=== PATIENT | male | born 1965 | race Caucasian/White ===

== ENCOUNTER 2021-11-15 10:08 | Emergency (ER) | payer OTHER ==
[2021-11-15 10:33] LABS: BASOPHIL 0.5 % (0-2); EOSINOPHIL 0.3 % (0-5); MCH 31.8 pg (25.0-31.0); MCHC 34.1 g/dL (32.0-36.0); MCV 93.4 fL (78.0-100.0); MONOCYTE 8.4 % (0-12); MPV 10.6 fL (6.0-9.5); NEUTROPHIL 87.3 % (41-80); NRBC 0; PLT 177 K/uL (150-400); RBC 4.71 M/uL (4.70-6.00); RDW 12.7 % (11.5-14.0); WBC 10.3 K/uL (4.0-10.5)
[2021-11-15 10:44] LABS: ALBUMIN 4.2 g/dL (3.4-5.0); BILIRUBIN - TOTAL 0.4 mg/dL (0.2-1.0); BUN/CREAT RATIO (CALC) 16.5 RATIO; CREATININE 0.91 mg/dL (0.67-1.17); POTASSIUM 3.9 mmol/L (3.5-5.1); TOTAL PROTEIN 7.2 g/dL (6.4-8.2)
== END 2021-11-15 11:30 | disposition home or self-care (01) ==
LOC: FER 10:08
PROVIDERS: Emergency Medicine
DX: U07.1 COVID-19 (principal); I10 Essential (primary) hypertension
CPT/HCPCS: 36415; 71045; 80053; 82553; 84484; 85025; 85379; 93005; U0002